=== PATIENT | female | born 1970 | race Caucasian/White ===

== ENCOUNTER → 2017-11-16 | Outpatient (CLI) | payer OTHER ==
--- NOTE | 2017-11-16 20:12 | MR ---
EXAMINATION TYPE: MR lumbar spine wo con DATE OF EXAM: 11/16/2017 COMPARISON: NONE HISTORY: Low back pain x1 month TECHNIQUE: T1 and T2 axial and sagittal images of the lumbar spine are submitted. FINDINGS: There is no abnormal signal seen within the visualized spinal cord or paraspinal soft tissu es. There is loss of disc signal and space at multiple levels compatible with multilevel degenerative disc disease. At L1-2 there is no disc herniation or canal stenosis. No foraminal encroachment At L2-3 there is focal central disc small herniation with moderate anterior compression thecal sac. H ypertrophic change and ligamentum flavum facets. There is AP central stenosis. No foraminal encroachm ent At L3-4 there is small focal central disc protrusion with mild anterior effacement of thecal sac. Fac et arthropathy and ligamentum flavum hypertrophy. Left lateral disc bulging contributes to left-sided foraminal encroachment. At L4-5 there is broad-based central disc protrusion or herniation hypertrophy of the ligamentum flav um and facet joints resulting in mild central stenosis. Neural foramina remain patent. At L5-S1 there is degenerative disc disease and facet arthropathy. There is discogenic marrow changes and mild bilateral foraminal encroachment. No Canal stenosis. IMPRESSION: 1. Focal central disc herniation L2-L3 with moderate anterior compression of thecal sac, AP central s tenosis. 2. Small focal central disc herniation or protrusion with mild effacement of thecal sac L3-L4. Left l ateral disc bulging contributes to mild left-sided foraminal encroachment. 3. Broad-based central disc protrusion or small herniation L4-L5 with hypertrophic changes all contri buting to mild central stenosis. 4. Multilevel degenerative disc disease.
== END | disposition home or self-care (01) ==
LOC: RADMRIMAIN 18:37
PROVIDERS: ATTEND Internal Medicine
DX: M48.061 Spinal stenosis, lumbar region without neurogenic claudication (principal); M51.36 Other intervertebral disc degeneration, lumbar region; M51.26 Other intervertebral disc displacement, lumbar region; M53.86 Other specified dorsopathies, lumbar region
CPT/HCPCS: 72148